=== PATIENT | female | born 1980 | race African-American/Black ===

== ENCOUNTER 2023-11-19 13:12 | Emergency (ER) | payer BC, MEDICAID ==
[~2023-11-19] VITALS: Ht 167.6 cm; Wt 97.0 kg
[2023-11-19 13:18] VITALS: BP 149/73; PULSE 101; RESP 20; TEMP 98.4; O2SAT 96
== END 2023-11-19 15:07 | disposition left against medical advice (07) ==
LOC: ER 13:12
DX: R07.9 Chest pain, unspecified (principal); Z53.21 Procedure and treatment not carried out due to patient leaving prior to being seen by health care provider
CPT/HCPCS: 93005; 99281